=== PATIENT | female | born 1965 | race Caucasian/White ===

== ENCOUNTER 2017-02-20 21:16 | Emergency (ER) | payer OTHER ==
[~2017-02-20] VITALS: Ht 167.6 cm; Wt 105.7 kg
[~2017-02-20 21:16] MED LIST: BACT2OIN TOP; DOXY100T PO; LORT5TAB PO
[2017-02-20 21:19] VITALS: BP 123/81; PULSE 80; RESP 16; TEMP 98.2; O2SAT 98
[2017-02-20] MEDS ORDERED: AMOXICILLIN/CLAVULANATE K 875 MG TAB PO ONE (22:00)
[2017-02-20] MEDS ORDERED: TETANUS/DIPHTHERIA TOXOID ADULT 0.5 ML VIAL IM ONE (22:00)
--- NOTE | 2017-02-20 22:08 | PD ---
HPI Chief Complaint: Bite or Sting Time Seen by Provider: 21:45 Travel History International Travel<30 days: No Contact w/Intl Traveler<30days: No Traveled to known affect area: No History of Present Illness HPI 51-year-old female presents to the emergency room for evaluation of a dog bite to her right wrist that occurred just prior to arrival. Patient states her dog was playing with her other dog when she got between them and accidentally got bitten. She immediately ran it under water. Patient reported pain was severe at first but has slightly subsided. Her dog is up-to-date on rabies vaccination. Patient does not remember her last tetanus vaccination. PFSH Past Medical History Medical History: Denies Significant Hx Tetanus Vaccination: > 5 Years Influenza Vaccination: No ?: Not Past Surgical History Surgical History: No Previous Surgery Social History Alcohol Use: No Tobacco Use: No Substance Use: No Allergies-Medications (Allergen,Severity, Reaction): Coded Allergies: Sulfa (Verified Allergy, Severe, HIVES/HEADACHE/NAUSEA/VOMITING, 02/20/17) Reported Meds & Prescriptions Reported Meds & Active Scripts Active Augmentin (Amoxicillin-Clavulanate) 875-125 Mg Tab 1 Tab PO BID 10 Days Review of Systems Except as stated in HPI: all other systems reviewed are Neg Physical Exam Narrative GENERAL: Well-nourished, well-developed female in no acute distress. Afebrile. Ambulatory. SKIN: Focused skin assessment warm/dry. There is 2 superficial abrasions and 1 deep 1 cm laceration to the right distal wrist on the radial side. There is surrounding ecchymosis. HEAD: Normocephalic. EYES: No scleral icterus. No injection or drainage. NECK: Supple, trachea midline. No JVD or lymphadenopathy. CARDIOVASCULAR: Regular rate and rhythm without murmurs, gallops, or rubs. RESPIRATORY: Breath sounds equal bilaterally. No accessory muscle use. EXTREMITY: Right wrist tender to palpation over the wounds. Full range of motion in all joints. Mild to moderate edema around the wounds. 2+ radial pulse. Data Data Last Documented VS Vital Signs Date Time Temp Pulse Resp B/P Pulse Ox O2 Delivery O2 Flow Rate FiO2 02/20/17 21:19 98.2 80 16 123/81 98 Orders Tetanus/Diphtheria Tox Adult (Tetanus/Di (02/20/17 22:00) Amoxicil-Clavulanate (Augmentin) (02/20/17 22:00) [facility] Medical Decision Making Medical Screen Exam Complete: Yes Emergency Medical Condition: Yes Medical Record Reviewed: Yes Differential Diagnosis Bite, abrasion, laceration, wound care Narrative Course 51-year-old female presents to the emergency room for evaluation of dog bite to her right distal wrist on the radial side. Bite occurred just prior to arrival. She was bitten by her dog and her dog is up-to-date on rabies. Patient was updated on tetanus. Wounds were thoroughly cleansed with soap and water. Patient was given her first dose of Augmentin in the emergency room and discharged with prescription for same. There is a 1 cm deep laceration that is less than 12 hours old and clinically unaffected. It was repaired with Steri- Strips. Sutures will not be used as there is increased risk of infection. Told to follow-up with a primary care physician or return for worsening symptoms. She understands and agrees to plan. Diagnosis Primary Impression: Dog bite of wrist Qualified Code: S61.551A - Dog bite of wrist, right, initial encounter Referrals: Primary Care Physician Patient Instructions: Animal Bite (ED), General Instructions Additional Instructions: Rest and drink plenty of fluids. Take Augmentin as directed, until gone. Follow up with a primary care physician. Return to emergency room for worsening symptoms, as discussed. Med/Other Pt SpecificInfo: Prescription(s) given Scripts Amoxicillin-Clavulanate (Augmentin)875-125 Mg Tab1 Tab PO BID 10 Days Ref 0 Prov:Raimundo Avila MD 02/20/17 Disposition: 01 DISCHARGE HOME Condition: Stable Bre Cm Feb 20, 2017 22:08
[2017-02-20] MEDS ORDERED: AUGM875T3 PO (22:10)
== END 2017-02-20 22:28 | disposition home or self-care (01) ==
LOC: PHEFT 21:16
DX: S61.551A Open bite of right wrist, initial encounter (principal); Z23 Encounter for immunization; W54.0XXA Bitten by dog, initial encounter
CPT/HCPCS: 90471; 90714